=== PATIENT | female | born 1965 | race Caucasian/White ===

== ENCOUNTER 2018-10-01 16:42 | Outpatient (REF) | payer BC, SELFPAY | END 2018-10-01 17:02 | LOC: LBN 16:42 | PROVIDERS: PCP Family Medicine; Visit Provider Obstetrics & Gynecology | DX: N39.0 Urinary tract infection, site not specified (principal); R31.9 Hematuria, unspecified | CPT/HCPCS: 87077; 87086; 87186 ==

== ENCOUNTER 2019-03-18 17:16 | Outpatient (REF) | payer BC, SELFPAY ==
--- NOTE | 2019-03-18 14:30 | PAPFT_PTH ---
PATIENT: Niecy Renteria LOC: [facility] U#:[id number] AGE/SX: 54/F ROOM: RE03/18/[address]: DEAN Cordova : 1965 BED: DIS: 03/18/2019 SPEC #: [id number] RECD: 03/18/19 17:44 STATUS: SHANDA ART #: [id number] MICHEAL: 03/18/19 14:[address]: Enedelia Olvera [facility] RECD BY: Roxie Bianchi ENTERED: 03/18/19 17:44 SP TYPE: PAPFT OTHR DR: Dwain Schneider MD Tissues: 1 - CX/ENDOCX FOR PAP SMEARS Procedures: PAP THIN PREP/UVM Screening HPV DNA PROBE Comments: [id number]
== END 2019-03-18 17:36 ==
LOC: LBN 17:16
PROVIDERS: PCP Family Medicine; Visit Provider Nurse Practitioner Family
DX: Z12.4 Encounter for screening for malignant neoplasm of cervix (principal); Z11.51 Encounter for screening for human papillomavirus (HPV)
CPT/HCPCS: 88142; 87624

== ENCOUNTER 2019-04-02 00:45 | Outpatient (CLI) | payer BC, SELFPAY ==
--- NOTE | 2019-04-02 15:35 | DI.MAMMO_ITS ---
SYMPTOMS/DIAGNOSIS: SCREENING, Z12.31 MAMMOGRAM: Mammograms were interpreted according to the usual protocol including computer analysis with CAD system, tomosynthesis and C view imaging. The breast tissue is of moderate radiodensity. There is no evidence of a mass. There are no suspicious calcifications and there has been no significant interval change when compared with prior images. SUMMARY: No evidence of malignancy, Category 1, yearly mammography is recommended. Breast density Category B. SA ASSESSMENT OF FINDINGS: Negative. Category 1. Patient will receive a letter notifying them of these results. BI-RADS category B. There are scattered areas of fibroglandular density.
== END 2019-04-02 01:05 ==
PROVIDERS: PCP Family Medicine; Visit Provider Nurse Practitioner Family
DX: Z12.31 Encounter for screening mammogram for malignant neoplasm of breast (principal)
CPT/HCPCS: 77063; 77067

== ENCOUNTER 2019-04-09 14:55 | Emergency (ER) | payer BC, SELFPAY ==
[2019-04-09] VITALS (33 sets, daily range): BP systolic 104–137; BP diastolic 53–71; PULSE 61–91; RESP 11–28; TEMP 36.9; O2SAT 93–100
--- NOTE | 2019-04-09 15:45 | DI.RAD_ITS ---
SYMPTOM/DIAGNOSIS: WRIST INJURY, SYNCOPE LEFT WRIST: No fracture or dislocation is seen. IMPRESSION: Negative left wrist. PA AND LATERAL CHEST: The heart size is normal. The lungs appear clear. No infiltrate, effusion or pulmonary edema is seen. No thoracic compression fractures are seen. IMPRESSION: No acute abnormality.
--- NOTE | 2019-04-09 15:46 | W.ED.GENAD ---
Discharge Plan Disposition Patient Disposition: HOME Condition: Stable Discharge Details Chief Complaint: Orthopedic Clinical Impression: Contusion of left wrist, Syncope Primary Care Provider: Dwain Schneider ED Provider: Tish Montelongo Home Meds and New Rx's Prescriptions: No Action No Known Home Meds RF: 0 Discharge Instructions Instructions: Syncope (ED), Contusion in Adults (ED) Additional Instructions: Please contact your primary care physician and a director of collections and archives to arrange follow-up regarding her chronic intermittent episodes of loss of consciousness. Timely follow-up is important. Please call tomorrow to schedule. Use wrist splint for the next 1 to 2 weeks. Should pain persist you may need additional diagnostic testing. Please follow-up with your doctor or an orthopedic surgeon. Please take ibuprofen over the counter. Take 600mg by mouth every 6 hours as needed for pain. Return to the ER for any worsening or new concerning symptoms. Referrals: Dwain Schneider [Primary Care Provider] - Jorje Sanchez MD [ NON-[facility] STAFF PHYSICIAN] - Basilio Eller MD [ [facility] STAFF PHYSICIAN] - Discharge Data Discharge Date/Time-TO BE ENTERED AT DEPARTURE: 04/09/19 20:05 Medical Decision Making <Fito Montelongo MD - Last Filed: 04/27/19 08:58> 15:50 -- 54yo f here with left ulnar wrist pain and tenderness after injury this AM. No beds available in ED on initial presentation. patient consented to evaluation in waiting room to expedite care. While examining her wrist, patient noted that she felt thirsty and then as thought she was going to pass out. Patient advised to lie back in chair and did have brief syncopal episode lasting <2 minutes. Patient had return of mentation and was assisted to hospital stretcher and transported to monitored room. Patient notes long chronic history of intermittent syncope especially with prior orthopedic injury. Patient has had workup in remote past for syncope that was nondiagnostic. Plan to check ecg, screening labs to assess for electrolyte abnormalities and anemia. Consider fracture of distal ulna - will xray. ECG Data Attestation: I personally reviewed and interpreted this ECG (s) as follows: (Sinus rhythm 65 bpm, normal axis, QTC 416, QRS duration 110, nondiagnostic) <Tish Montelongo MD - Last Filed: 04/29/19 08:56> Niecy Renteria was signed out to me by Dr. Fito Montelongo with xrays, labs pending. CXR added for syncope. On my reassessment of the patient, she is asymptomatic. Patient states that she has had essentially lifelong fainting in physically painful and emotional situations. Patient reports that long periods of loss of consciousness with these fainting episodes, including sometimes up to 5 minutes, are common for her. Patient reports that a fainting episode occurs every 1 to 2 years, always in a situation similar to today's involving physical/emotional distress. Patient reports that she was evaluated by a director of collections and archives for these episodes years ago. Patient reports that she has never had syncopal episode or chest pain/palpitations/shortness of breath during exertion. She states that she has never had a syncopal episode in his situation other than with some type of distress. She states that she feels very well in her usual state of health at this time. Labs show mild hypokalemia at 3.3. Will replete. Chest x-ray, wrist x-ray negative. Plan for wrist splint. Syncopal episode consistent with vasovagal response. Exam/history is not consistent with ACS, PE, aortic pathology, other acute emergent life-threatening process. Doubt arrhythmia given significant prodrome and context of syncope. Given the patient has not been evaluated by cardiology for this for several years, I did discuss with patient that she should follow-up with her primary care doctor, and orthopedic surgeon, and also a director of collections and archives, and should possibly have cardiac monitoring. Respiratory therapy not available to place manager cardiac at this time, additionally, given infrequency of episodes patient would likely benefit from long-term monitoring as opposed to Holter/CO patch, if cardiology feels monitoring is indicated. I had a lengthy discussion with the patient regarding return to emergency department precautions, importance of outpatient follow-up, and home care. Patient verbalized understanding the plan was amenable. Medical Records Medical records reviewed: Yes I reviewed the patient's medical records. Imaging Data Radiologic Study: Attestation: I personally reviewed and interpreted this imaging study as follows: Radiologist's impression: EXAM: XR Chest, 2 Views EXAM DATE/TIME: 04/09/2019 4:27 PM CLINICAL HISTORY: 54 years old, female; Other: Syncope TECHNIQUE: Imaging protocol: XR of the chest, 2 views. COMPARISON: No relevant prior studies available. FINDINGS: Lungs: Unremarkable. No consolidation. Pleural space: Unremarkable. No pleural effusion. No pneumothorax. Heart/Mediastinum: Unremarkable. No cardiomegaly. Bones/joints: Unremarkable. IMPRESSION: No acute findings. EXAM: XR Left Wrist EXAM DATE/TIME: 04/09/2019 3:47 PM CLINICAL HISTORY: 54 years old, female; Pain; Wrist; Left TECHNIQUE: Imaging protocol: XR Left wrist. Views: 3 or more views. COMPARISON: No relevant prior studies available. FINDINGS: Bones/joints: Bone density is normal. No fracture or dislocation is identified. There is mild degenerative arthrosis of the basal joint. Soft tissues: The wrist soft tissues are swollen. IMPRESSION: No fracture. Lab Data Lab results reviewed: Yes I reviewed the patient's lab results. Laboratory Tests Range/Units 04/09/19 04/09/19 15:52 15:52 WBC (4.4-10.8) k/cumm 12.27 H RBC (4.00-5.20) m/cumm 4.01 Hgb (12.0-15.5) g/dL 12.7 Hct (36.0-46.0) % 37.6 MCV (80-95) fL 93.8 MCH (27.0-33.0) pg 31.7 MCHC (32.0-36.0) g/dL 33.8 RDW (11.7-14.6) % 12.1 Plt Count (130-400) x1000/uL 245 MPV (8.0-11.0) fL 10.7 Immature Gran % 0.2 Neutrophils % 71.2 Lymphocytes % 19.5 Monocytes % 7.6 Eosinophils % 1.3 Basophils % 0.2 Absolute Neutrophils (1.2-6.7) k/cumm 8.74 H Absolute Lymphocytes (1.2-3.4) k/cumm 2.39 Absolute Monocytes (0.11-0.7) k/cumm 0.93 H Absolute Eosinophils (0.0-0.7) k/cumm 0.16 Absolute Basophils (0.0-0.2) k/cumm 0.02 Sodium (136-145) mmol/L 139 Potassium (3.5-5.1) mmol/L 3.3 L Chloride (98-107) mmol/L 102 Carbon Dioxide (21.0-32.0) mmol/L 26.4 Anion Gap (3-11) mmol/L 10.6 BUN (7-18) mg/dL 14 Creatinine (0.55-1.02) mg/dL 0.76 Estimated GFR/1.73 m2 (mL/min/1.73m2) >= 60.00 Glucose (70-100) mg/dL 119 H Calcium (8.5-10.1) mg/dL 8.6 Magnesium (1.8-2.4) mg/dL 1.8 Total Bilirubin (0.2-1.0) mg/dL 0.2 AST (15-37) U/L 20 ALT (12-78) U/L 38 Alkaline Phosphatase (46-116) U/L 66 Troponin I (0.00-0.06) ng/mL < 0.05 Total Protein (6.4-8.2) g/dL 7.0 Albumin (3.4-5.0) g/dL 3.8 HPI <Fito Montelongo MD - Last Filed: 04/27/19 08:58> General Mode of arrival: ambulatory. Date/Time Provider Initiated Documentation: 04/09/19 15:21. Limitations to Documentation: no limitations. Information obtained by: patient. HPI Narrative: 54yo f with history of intermittent syncope since a child, here with left wrist pain. Patient notes that she impacted her left medial wrist on door this AM. Wrist has been painful today and worse with use of hand and on palpation medial wrist. No associated numbness. Related Data Home Medications Medication Instructions Recorded Confirmed Unknown [No Known Home Meds] 03/18/19 04/09/19 Allergies Allergy/AdvReac Type Severity Reaction Status Date / Time No Known Drug Allergies Allergy Verified 04/09/19 15:12 General Stated Complaint: Orthopedic DELFIN: 4 Review of Systems <Fito Montelongo MD - Last Filed: 04/27/19 08:58> Review of Systems All systems reviewed & are unremarkable except as noted in HPI and below Cardiovascular Denies chest pain, Reports syncope and Denies palpitations Musculoskeletal Reports as per HPI Neurologic Reports syncope Endocrine Denies palpitations PFSH <Fito Montelongo MD - Last Filed: 04/27/19 08:58> Medical History Abnormal Pap smear of cervix Surgical History Cervical Procedure Colonoscopy - IV Sedation (04/24/17) Family History Mother No problems noted. Father Diabetes Essential hypertension Neoplasm Grandfather Neoplasm Grandmother No problems noted. Son Neoplasm Medulloblastoma of cerebellum Grandfather Alcohol abuse Stroke Grandmother Diabetes Essential hypertension Heart disease Daughter No problems noted. Daughter No problems noted. Daughter No problems noted. Social History Smoking/Tobacco Use Status: Never Alcohol Intake: never Drug use: Never Substance use type: does not use current occupation: [employer] Female Reproductive History Menstrual Menopause type: natural History History 4 Para 4 Hx # Term Pregnancies Multiple births Hx # Pregnancies Ectopic pregnancies AB induced Hx Number of Living Children AB spontaneous Exam <Fito Montelongo MD - Last Filed: 04/27/19 08:58> Const General: cooperative and no acute distress HENMT Head: normocephalic Mouth: moist mucous membranes Eyes Conjunctivae: normal conjunctivae Sclera: normal sclerae EOM: EOM intact bilaterally Neck Neck: trachea midline and supple Resp Auscultation: clear to auscultation bilaterally, no rales, no rhonchi and no wheezes Cardio Jugular venous pressure: no JVD Rate: regular rate and not tachycardic Rhythm: regular rhythm GI Palpation: soft, not firm, no guarding, no masses, not rigid and nontender Skin General skin exam: no rashes or lesions noted Neuro General: alert, awake, oriented x3 and tone normal Extrem General: no edema Left upper extremity: wrist Details: tenderness Location: of the distal ulna, abnormal ROM Details: pain with passive ROM Details: in flexion and normal vascular exam; no swelling, no unusual warmth, no ecchymosis, no crepitus and no deformity Psych Appearance: grossly normal Mental Status: mental status grossly normal Course <Fito Montelongo MD - Last Filed: 04/27/19 08:58> Vital Signs Temperature 36.9 C 04/09/19 15:09 Pulse 84 04/09/19 15:09 Respiratory Rate 16 04/09/19 15:09 Blood Pressure 128/70 04/09/19 15:09 Pulse Oximetry 100 04/09/19 15:09 Temperature 36.9 C 04/09/19 15:09 Temperature Source Skin 04/09/19 15:09 Pulse 84 04/09/19 15:09 Respiratory Rate 16 04/09/19 15:09 Respiratory Effort Non-Labored 04/09/19 15:09 Blood Pressure 128/70 04/09/19 15:09 Blood Pressure Position Sitting 04/09/19 15:09 Pulse Oximetry 100 04/09/19 15:09 Oxygen Delivery Method Room Air 04/09/19 15:09 Oxygen Flow Rate 0 04/09/19 15:09 Pain Level 5 04/09/19 15:09 Sign Out <Fito Montelongo MD - Last Filed: 04/27/19 08:58> Sign Out Data: Sign Out Comment: 16:30 -- Care signed out to Dr. Tish Montelongo with plan to follow-up on xray, labs, reassess patient for disposition. Last updated by Fito Montelongo MD at 04/09/19 16:33
[2019-04-09 15:59] LABS: Abs Immature Grans 0.03 k/cumm (0.0-0.09); Absolute Basophil Count 0.02 k/cumm (0.0-0.2); Absolute Eosinophil Count 0.16 k/cumm (0.0-0.7); Absolute Lymphocyte Count 2.39 k/cumm (1.2-3.4); Absolute Monocyte Count 0.93 k/cumm (0.11-0.7); Absolute Neutrophil Count 8.74 k/cumm (1.2-6.7); Basophils % 0.2; Eosinophils % 1.3; HCT 37.6 % (36.0-46.0); HGB 12.7 g/dL (12.0-15.5); Immature Grans % 0.2; Lymphocytes % 19.5; Mean Corp. HGB Concentration 33.8 g/dL (32.0-36.0); Mean Corpuscular Hemoglobin 31.7 pg (27.0-33.0); Mean Corpuscular Volume 93.8 fL (80-95); Mean Platelet Volume 10.7 fL (8.0-11.0); Monocytes % 7.6; Neutrophils % 71.2; Platelet Count 245 x1000/uL (130-400); RBC 4.01 m/cumm (4.00-5.20); RBC Distribution Width 12.1 % (11.7-14.6); White Blood Cell Count 12.27 k/cumm (4.4-10.8)
[2019-04-09] MEDS: Lactated Ringers 1,000 ML 1000 ML IV (16:08)
[2019-04-09 16:15] LABS: ALT 38 U/L (12-78); AST 20 U/L (15-37); Albumin 3.8 g/dL (3.4-5.0); Alkaline Phosphatase 66 U/L (46-116); Anion Gap 10.6 mmol/L (3-11); BUN 14 mg/dL (7-18); Bilirubin, Total 0.2 mg/dL (0.2-1.0); CO2 26.4 mmol/L (21.0-32.0); CREATININE 0.76 mg/dL (0.55-1.02); Calcium 8.6 mg/dL (8.5-10.1); Chloride 102 mmol/L (98-107); Glucose 119 mg/dL (70-100); Magnesium 1.8 mg/dL (1.8-2.4); Potassium 3.3 mmol/L (3.5-5.1); Sodium 139 mmol/L (136-145)
--- NOTE | 2019-04-09 16:15 | NUR.NOTE ---
Nursing Note: Patients wrist was manipulated by provider in the lobby where she had a syncople episode. He reports she was approximately out for 2 min. Patient admits to this writer editor this isn't her first time passing out as a pain response.
[2019-04-09 16:23] LABS: Troponin I < 0.05 ng/mL (0.00-0.06)
--- NOTE | 2019-04-09 16:53 | DI.VRAD_ITS ---
EXAM: XR Chest, 2 Views EXAM DATE/TIME: 04/09/2019 4:27 PM CLINICAL HISTORY: 54 years old, female; Other: Syncope TECHNIQUE: Imaging protocol: XR of the chest, 2 views. COMPARISON: No relevant prior studies available. FINDINGS: Lungs: Unremarkable. No consolidation. Pleural space: Unremarkable. No pleural effusion. No pneumothorax. Heart/Mediastinum: Unremarkable. No cardiomegaly. Bones/joints: Unremarkable. IMPRESSION: No acute findings. Dictated and Authenticated by: Luis Mccarty MD. Ordering:CALEB Winston MD
--- NOTE | 2019-04-09 19:32 | DI.VRAD_ITS ---
EXAM: XR Left Wrist EXAM DATE/TIME: 04/09/2019 3:47 PM CLINICAL HISTORY: 54 years old, female; Pain; Wrist; Left TECHNIQUE: Imaging protocol: XR Left wrist. Views: 3 or more views. COMPARISON: No relevant prior studies available. FINDINGS: Bones/joints: Bone density is normal. No fracture or dislocation is identified. There is mild degenerative arthrosis of the basal joint. Soft tissues: The wrist soft tissues are swollen. IMPRESSION: No fracture. Dictated and Authenticated by: Luis Mccarty MD. Ordering:HANNY Payton MD
[2019-04-09] MEDS: Potassium Chloride 20 MEQ TABCR 40 MEQ PO (19:47)
== END 2019-04-09 20:05 | disposition home or self-care (01) ==
PROVIDERS: Student in an Organized Health Care Education/Training Program; Emergency Provider Student in an Organized Health Care Education/Training Program; PCP Family Medicine
DX: S60.212A Contusion of left wrist, initial encounter (principal); W22.09XA Striking against other stationary object, initial encounter; R55 Syncope and collapse
CPT/HCPCS: 29125; 36415; 80053; 93005; 96360; 99285; 71046; 73110; 83735; 84484; 85025; 93010; 99284; L3908

== ENCOUNTER 2020-04-14 01:32 | Outpatient (CLI) | payer BC, SELFPAY ==
--- NOTE | 2020-04-14 13:00 | DI.MAMMO_ITS ---
EXAM: MG MAMMO SCREENING CLINICAL HISTORY: screening,Z12.39 TECHNIQUE: Bilateral full field digital CC and MLO mammographic images were obtained with 3D tomosyn thesis and utilizing computer aided detection (CAD). COMPARISON: Available for comparison. FINDINGS: Masses/Architectural Distortion: None seen. Microcalcifications: No suspicious pleomorphic-type are seen. Skin Thickening/Nipple Retraction: None. IMPRESSION: 1. No significant interval change with no specific features of malignancy noted. 2. Unless there is more urgent need, screening mammography is recommended, as per [place] [employer] guidelines. BI-RADS Category 1 - Negative Breast Density - Category B - Scattered areas of fibroglandular density A negative radiographic report should not delay biopsy if a dominant or clinically suspicious mass is present. Up to ten percent of cancers are not identified on mammography. A negative report may reinforce clinical impression. Adenosis and dense breasts may obscure an underlying neoplasm. False positive reports average 6 to 10%. Patient will receive a letter notifying them of these results.
== END 2020-04-14 01:52 ==
PROVIDERS: PCP Family Medicine; Visit Provider Nurse Practitioner Family
DX: Z12.31 Encounter for screening mammogram for malignant neoplasm of breast (principal); R92.2 Inconclusive mammogram
CPT/HCPCS: 77063; 77067

== ENCOUNTER 2021-03-25 09:16 | Outpatient (REF) | payer BC, SELFPAY ==
--- NOTE | 2021-03-25 08:30 | SKI_PTH ---
PATIENT: Niecy Renteria LOC: [facility] U#:[id number] AGE/SX: 56/F ROOM: RE03/25/[address]: Urmila Acosta MD : 1965 BED: DIS: 03/25/2021 SPEC #: [id number] RECD: 03/25/21 12:41 STATUS: SHANDA REQ #: [id number] MICHEAL: 03/25/21 08:[address]: Urmila Acosta DEPT: Surgical Specimen RECD BY: Roxie Bianchi ENTERED: 03/25/21 12:41 SP TYPE: SHRUTHI CORONA DR: Dwain Schneider MD Tissues: 1 - SKIN CYST/TAG/DEBRIDEMENT Procedures: GROSS AND MICRO LEVEL 3 Comments: [id number]
== END 2021-03-25 09:17 | disposition home or self-care (01) ==
LOC: NCHCN 09:16
PROVIDERS: PCP Family Medicine; Visit Provider Obstetrics & Gynecology
DX: D23.5 Other benign neoplasm of skin of trunk (principal)
CPT/HCPCS: 88304

== ENCOUNTER 2021-04-15 03:05 | Outpatient (CLI) | payer BC, SELFPAY ==
--- NOTE | 2021-04-15 07:50 | DI.MAMMO_ITS ---
Exam(s) MAMMO SCREENING EXAM: MAMMO SCREENING CLINICAL HISTORY: screening TECHNIQUE: Bilateral full field digital CC and MLO mammographic images were obtained with 3D tomosyn thesis and utilizing computer aided detection (CAD). COMPARISON: Available for comparison. FINDINGS: Masses/Architectural Distortion: None seen. Microcalcifications: No suspicious pleomorphic-type are seen. Skin Thickening/Nipple Retraction: None. IMPRESSION: 1. No significant interval change with no specific features of malignancy noted. 2. Unless there is more urgent need, screening mammography is recommended, as per [place] [employer] guidelines. BI-RADS Category 1 - Negative Breast Density - Category B - Scattered areas of fibroglandular density Breast density category C or D implies that the patient has dense breast tissue. Dense breast tissue is very common and is not abnormal but dense breast tissue can make it harder to find cancer on a ma mmogram. Also, dense breast tissue may increase their breast cancer risk. This information about the result of the mammogram report was provided to the patient to raise their awareness. Use this report when you speak with the patient about their risks for breast cancer, which includes their family hist ory. At that time, you may recommend for more screening tests (Ultrasound or MRI) as they might be us eful based on their risk. A negative radiographic report should not delay biopsy if a dominant or clinically suspicious mass is present. Up to ten percent of cancers are not identified on mammography. A negative report may reinforce clinical impression. Adenosis and dense breasts may obscure an underlying neoplasm. False positive reports average 6 to 10%. Patient will receive a letter notifying them of these results.
== END 2021-04-15 03:25 ==
PROVIDERS: PCP Family Medicine; Visit Provider Nurse Practitioner Family
DX: Z12.31 Encounter for screening mammogram for malignant neoplasm of breast (principal); R92.8 Other abnormal and inconclusive findings on diagnostic imaging of breast
CPT/HCPCS: 77063; 77067

== ENCOUNTER 2022-04-11 09:40 | Outpatient (REF) | payer BC, SELFPAY ==
--- NOTE | 2022-04-11 09:15 | PAPFT_PTH ---
PATIENT: Niecy Renteria LOC: [facility] U#:[id number] AGE/SX: 57/F ROOM: RE04/11/[address]: DEAN Cordova : 1965 BED: DIS: 04/11/2022 SPEC #: [id number] RECD: 04/11/22 12:43 STATUS: SHANDA REArabella #: [id number] MICHEAL: 04/11/22 09:[address]: Enedelia Olvera DEPT: [facility] Cytology RECD BY: Jose Bowden Tissues: 1 - CX/ENDOCX FOR PAP SMEARS Procedures: PAP THIN PREP/UVM Screening HPV DNA PROBE Comments: [id number]
== END 2022-04-11 09:41 | disposition home or self-care (01) ==
LOC: LBN 09:40
PROVIDERS: PCP Family Medicine; Visit Provider Nurse Practitioner Family
DX: Z12.4 Encounter for screening for malignant neoplasm of cervix (principal); Z11.51 Encounter for screening for human papillomavirus (HPV)
CPT/HCPCS: 88142; 87624

== ENCOUNTER → 2022-04-26 01:35 | Outpatient (CLI) | payer BC, SELFPAY ==
--- NOTE | 2022-04-26 12:15 | DI.MAMMO_ITS ---
Exam(s) MAMMO SCREENING EXAM: MAMMO SCREENING CLINICAL HISTORY: screening TECHNIQUE: Mammograms were interpreted according to the usual protocol including computer analysis w [employer] CAD system, tomosynthesis and C-view imaging. COMPARISON: FINDINGS: The breasts are heterogeneously dense. No dominant mass or clumped microcalcification is identified in either breast. The current examination is compared with previous examinations including April 23 and there has been no gross interval change in appearance in comparison with the prior studies. IMPRESSION: No specific evidence of malignancy at this time. Routine screening examinations are suggested at yea rly intervals in this age group according to the ACS ACR guidelines. BI-RADS Category 1 - Negative Breast Density - Category C - Heterogeneously dense
== END ==
PROVIDERS: PCP Family Medicine; Visit Provider Nurse Practitioner Family
DX: Z12.31 Encounter for screening mammogram for malignant neoplasm of breast (principal); R92.8 Other abnormal and inconclusive findings on diagnostic imaging of breast
CPT/HCPCS: 77063; 77067

== ENCOUNTER 2022-11-14 03:14 | Outpatient (CLI) | payer BC, SELFPAY ==
[2022-11-14 07:34] LABS: Anion Gap 4.6 mmol/L (3-11); BUN 13 mg/dL (7-18); CO2 32.4 mmol/L (21.0-32.0); CREATININE 0.8 mg/dL (0.55-1.02); Calcium 9.1 mg/dL (8.5-10.1); Calculated LDL 192 mg/dL (<100); Chloride 106 mmol/L (98-107); Cholesterol 279 mg/dL (<200); Estimated GFR 84.82 (mL/min/1.73m2); Glucose 94 mg/dL (74-106); HDL Cholesterol 67 mg/dL (40-60); Potassium 3.8 mmol/L (3.5-5.1); Sodium 143 mmol/L (136-145); Triglyceride 101 mg/dL (<150)
[2022-11-15 10:25] LABS: Hepatitis C Ab w Rflx HCV PCR Negative (Negative)
== END 2022-11-14 03:15 | disposition home or self-care (01) ==
PROVIDERS: PCP Family Medicine; Visit Provider Family Medicine
DX: Z00.00 Encounter for general adult medical examination without abnormal findings (principal); Z13.220 Encounter for screening for lipoid disorders; Z11.59 Encounter for screening for other viral diseases
CPT/HCPCS: 36415; 80048; 80061; 86803

== ENCOUNTER → 2023-04-27 01:47 | Outpatient (CLI) | payer BC, SELFPAY ==
--- NOTE | 2023-04-27 07:45 | DI.MAMMO_ITS ---
Exam(s) MAMMO SCREENING EXAM: MAMMO SCREENING CLINICAL HISTORY: screening,z12.39. TECHNIQUE: Bilateral full field digital CC and MLO mammographic images were obtained with 3D tomosyn thesis and utilizing computer aided detection (CAD). COMPARISON: Prior mammograms were reviewed. FINDINGS: There has been no significant change in the appearance and distribution of the fibroglandular tissue. There are no new spiculated masses nor malignant appearing microcalcification groups. Asymmetric tissue right breast unchanged prior studies. There is no significant architectural distortion nor skin thickening-retraction. IMPRESSION: No radiographic evidence of malignancy. BI-RADS Category 1 - Negative Breast Density - Category B - Scattered areas of fibroglandular density Breast density Category C or D implies that the patient has dense breast tissue. Dense breast tissue can make it harder to find cancer on a mammogram. Dense breast tissue is also associated with an incr eased risk of breast cancer. This information about the result of the mammogram report was provided to the patient to raise their awareness. Use this report when you speak with the patient about their risks for breast cancer, which includes their family history. At that time, you may recommend additional screening tests (Ultrasoun d or MRI) as these tests may add significant information. A negative radiographic report should not delay biopsy if a dominant or clinically suspicious mass is present. Up to ten percent of cancers are not identified on mammography. A negative report may reinforce clinical impression. Adenosis and dense breasts may obscure an underlying neoplasm. False positive reports average 6 to 10%. Patient will receive a letter notifying them of these results.
== END ==
PROVIDERS: PCP Family Medicine; Visit Provider Obstetrics & Gynecology
DX: Z12.31 Encounter for screening mammogram for malignant neoplasm of breast (principal)
CPT/HCPCS: 77063; 77067

== ENCOUNTER 2024-06-18 02:25 | Outpatient (CLI) | payer BC, SELFPAY ==
[2024-06-18 08:37] LABS: ALT 48 U/L (14-59); AST 24 U/L (15-37); Albumin 3.9 g/dL (3.4-5.0); Alkaline Phosphatase 75 U/L (46-116); BUN 15 mg/dL (7-18); Bilirubin, Total 0.67 mg/dL (0.2-1.0); CREATININE 0.9 mg/dL (0.55-1.02); Calculated LDL 67 mg/dL (<100); Chloride 108 mmol/L (98-107); Cholesterol 147 mg/dL (<200); Estimated GFR 72.73 (mL/min/1.73m2); Glucose 97 mg/dL (74-106); HDL Cholesterol 70 mg/dL (40-60); Potassium 3.9 mmol/L (3.5-5.1); Sodium 145 mmol/L (136-145); Total Protein 7.4 g/dL (6.4-8.2); Triglyceride 51 mg/dL (<150)
== END 2024-06-18 02:26 | disposition home or self-care (01) ==
LOC: LBO 02:25
PROVIDERS: PCP Family Medicine; Visit Provider Family Medicine
DX: Z00.00 Encounter for general adult medical examination without abnormal findings (principal); E78.5 Hyperlipidemia, unspecified; Z13.6 Encounter for screening for cardiovascular disorders
CPT/HCPCS: 36415; 80053; 80061

== ENCOUNTER 2024-07-10 01:55 | Outpatient (CLI) | payer BC, SELFPAY ==
--- NOTE | 2024-07-10 07:30 | DI.MAMMO_ITS ---
Exam(s) MAMMO SCREENING EXAM: MAMMO SCREENING CLINICAL HISTORY: screening TECHNIQUE: Bilateral full field digital CC and MLO mammographic images were obtained with 3D tomosyn thesis and utilizing computer aided detection (CAD). COMPARISON: Available for comparison. FINDINGS: Masses/Architectural Distortion: None seen. Microcalcifications: No suspicious pleomorphic-type are seen. Skin Thickening/Nipple Retraction: None. IMPRESSION: 1. No significant interval change with no specific features of malignancy noted. 2. Unless there is more urgent need, screening mammography is recommended, as per [place] [employer] guidelines. BI-RADS Category 1 - Negative Breast Density - Category B - Scattered areas of fibroglandular density Breast density category C or D implies that the patient has dense breast tissue. Dense breast tissue is very common and is not abnormal but dense breast tissue can make it harder to find cancer on a ma mmogram. Also, dense breast tissue may increase their breast cancer risk. This information about the result of the mammogram report was provided to the patient to raise their awareness. Use this report when you speak with the patient about their risks for breast cancer, which includes their family hist ory. At that time, you may recommend for more screening tests (Ultrasound or MRI) as they might be us eful based on their risk. A negative radiographic report should not delay biopsy if a dominant or clinically suspicious mass is present. Up to ten percent of cancers are not identified on mammography. A negative report may reinforce clinical impression. Adenosis and dense breasts may obscure an underlying neoplasm. False positive reports average 6 to 10%. Patient will receive a letter notifying them of these results.
== END 2024-07-10 02:15 ==
LOC: DI 01:55
PROVIDERS: PCP Family Medicine; Visit Provider Obstetrics & Gynecology
DX: Z12.31 Encounter for screening mammogram for malignant neoplasm of breast (principal); R92.323 Mammographic fibroglandular density, bilateral breasts
CPT/HCPCS: 77063; 77067

== ENCOUNTER → 2025-07-17 02:24 | Outpatient (CLI) | payer BC, SELFPAY ==
--- NOTE | 2025-07-17 07:51 | DI.MAMMO_ITS ---
Exam(s) MAMMO SCREENING EXAM: MAMMO SCREENING CLINICAL HISTORY: screening,z12.39. TECHNIQUE: Bilateral full field digital CC and MLO mammographic images were obtained with 3D tomosynthesis and utilizing computer aided detection (CAD). COMPARISON: Prior mammograms were reviewed. FINDINGS: There has been no significant change in the appearance and distribution of the fibroglandular tissue. There are no new spiculated masses nor malignant appearing microcalcification groups. There is no significant architectural distortion nor skin thickening-retraction. IMPRESSION: No radiographic evidence of malignancy. BI-RADS Category 1 - Negative Breast Density - Category B - There are scattered areas of fibroglandular density. Breast density Category C or D implies that the patient has dense breast tissue. Dense breast tissue can make it harder to find cancer on a mammogram. Dense breast tissue is also associated with an increased risk of breast cancer. This information about the result of the mammogram report was provided to the patient to raise their awareness. Use this report when you speak with the patient about their risks for breast cancer, which includes their family history. At that time, you may recommend additional screening tests (Ultrasound or MRI) as these tests may add significant information. A negative radiographic report should not delay biopsy if a dominant or clinically suspicious mass is present. Up to ten percent of cancers are not identified on mammography. A negative report may reinforce clinical impression. Adenosis and dense breasts may obscure an underlying neoplasm. False positive reports average 6 to 10%. Patient will receive a letter notifying them of these results.
== END ==
LOC: DI 02:24
PROVIDERS: PCP Family Medicine; Visit Provider Obstetrics & Gynecology
DX: Z12.31 Encounter for screening mammogram for malignant neoplasm of breast (principal); R92.323 Mammographic fibroglandular density, bilateral breasts
CPT/HCPCS: 77063; 77067